=== PATIENT | female | born 1975 | race Caucasian/White ===

== ENCOUNTER 2016-06-12 06:55 | Inpatient (IN) | payer OTHER ==
[2016-06-12] VITALS (8 sets, daily range): BP systolic 116–128; BP diastolic 58–79
[~2016-06-12] VITALS: Ht 167.6 cm; Wt 76.0 kg
[~2016-06-12 06:55] MED LIST: PRENTAB55 PO
[2016-06-12] MEDS ORDERED: LR 1,000 ML IV SCH ×2 (08:05→11:00)
[2016-06-12] MEDS ORDERED: OXYTOCIN INJ 10 UNITS/ML VIAL (J2590) As Ordered ONE (08:06)
[2016-06-12] MEDS ORDERED: BICITRA 30ML SOLN UDC PO ONE (08:15)
[2016-06-12 08:37] LABS: MEAN CORPUSCULAR HEMOGLOBIN 33.2 pg (27.0-33.0); MEAN CORPUSCULAR HGB CONC 34.7 g/dl (32.0-36.5); MEAN CORPUSCULAR VOLUME 95.7 fl (80.0-96.0); RED CELL DISTRIBUTION WIDTH 12.7 % (11.5-14.5); WHITE BLOOD COUNT 9.2 K/mm3 (4.0-10.0)
[2016-06-12] MEDS: PRENATAL VITAMIN TAB PO SCH (09:00)
[2016-06-12] MEDS ORDERED: LR 500 ML IV SCH (09:00)
[2016-06-12] MEDS ORDERED: MORPHINE PRES-FREE INJ 10 MG/10 ML VIAL (J2274) As Ordered ONE (09:05)
[2016-06-12] MEDS ORDERED: ONDANSETRON 4MG/2ML VIAL (J2405) IV PRN ×3 (09:20→11:45)
[2016-06-12] MEDS ORDERED: NALBUPHINE HCL 10 MG/ML AMP (J2300) IV PRN (09:20)
[2016-06-12] MEDS ORDERED: METOCLOPRAMIDE INJ 10MG/2ML VIAL (J2765) IV PRN ×2 (09:20→11:00)
[2016-06-12] MEDS ORDERED: NALOXONE INJ 0.4 MG/1 ML VIAL (J2310) IV PRN ×2 (09:20)
[2016-06-12] MEDS ORDERED: ePHEDrine SULFATE 25 MG/5 ML(5MG/ML) SYRINGE As Ordered ONE (09:39)
[2016-06-12] MEDS ORDERED: fentaNYL 100 MCG/2 ML INJECTION (J3010) As Ordered ONE (09:58)
[2016-06-12] MEDS ORDERED: KETOROLAC 60 MG/2 ML VIAL (J1885) As Ordered ONE (10:15)
[2016-06-12] MEDS ORDERED: PERCOCET 5MG/325MG TAB PO PRN ×2 (11:00→11:45)
[2016-06-12] MEDS ORDERED: MEPERIDINE INJ 25 MG/ML VIAL (J2175) IV PRN (11:00)
[2016-06-12] MEDS ORDERED: fentaNYL 100 MCG/2 ML INJECTION (J3010) IV PRN (11:00)
[2016-06-12] MEDS ORDERED: MEASLES,MUMPS,RUBELLA VACCINE INJ (MMR-II) (90707) SC SCH (11:45)
[2016-06-12] MEDS ORDERED: PROMETHAZINE 25 MG TAB PO PRN (11:45)
[2016-06-12] MEDS ORDERED: METHYLERGONOVINE MALEATE 0.2 MG/ML VIAL (J2210) IM PRN (11:45)
[2016-06-12] MEDS ORDERED: RHOGAM 300 MCG (1500 IU) INJ (J2790) IM SCH (11:45)
[2016-06-12] MEDS: LR 1,000 ML IV SCH ×2 (14:03→19:42)
[2016-06-12] MEDS: KETOROLAC 30 MG/ML VIAL (J1885) IV SCH ×2 (16:01→22:21)
[2016-06-12] MEDS: DOCUSATE SODIUM 100 MG CAP PO SCH (22:21)
[2016-06-13 02:00] VITALS: BP 116/55
[2016-06-13] MEDS: LR 1,000 ML IV SCH (03:42)
[2016-06-13] MEDS: KETOROLAC 30 MG/ML VIAL (J1885) IV SCH ×2 (04:43→09:34)
[2016-06-13 06:20] VITALS: BP 110/59
--- NOTE | 2016-06-13 06:43 | RO ---
DATE OF PROCEDURE: 06/12/2016 PREOPERATIVE DIAGNOSES: 1. Intrauterine at 39 weeks estimated gestational age. 2. History of prior low transverse section. 3. Malpresentation. 4. Active labor. POSTOPERATIVE DIAGNOSIS 1. Intrauterine at 39 weeks estimated gestational age. 2. History of prior low transverse section. 3. Malpresentation. 4. Active labor. 5. Delivered. PROCEDURE PERFORMED: Repeat low transverse section. SURGEON: Marina Okeefe MD PETROGRAPHER: Vanessa Jauregui CNM ANESTHESIA: Spinal ESTIMATED BLOOD LOSS: 700 mL. IV FLUIDS: 700 mL lactated Ringer's. URINE OUTPUT: 200 mL. COMPLICATIONS: None. SPECIMEN: None. ANTIBIOTICS: Ancef 2 grams IV times one prior to skin incision. INDICATION: The patient is a 40-year-old, (G) 2, para (P) 1 with history of prior low transverse section and breech presentation of this fetus. She presented to labor and delivery in active labor and notable for cervical dilation of 5 cm. The patient was then counseled and consented at that time for a repeat low transverse section. FINDINGS: Viable female , Apgars 8 and 9, weight 8 pounds 7 ounces or 3816 grams. Normal uterus, tubes and ovaries bilaterally. The procedure, risks, benefits, indications and alternatives of the procedure were reviewed with the patient and informed consent was obtained. The patient was taken to the operating room where spinal anesthesia was obtained without difficulty. She was then prepped and draped in the normal sterile fashion in the dorsal supine position with a leftward tilt. A Pfannenstiel skin incision was then made with the scalpel and carried through to the underlying layer of fascia. The fascia was then incised in the midline and the incision extended laterally with Lozano scissors. The superior aspect of the fascial incision was grasped with Garry clamps, elevated and the underlying rectus muscles dissected off aided with a scalpel. Attention was then turned to the inferior aspect of this incision which in a similar fashion was grasped and tented up with Garry clamps and the rectus muscles dissected off aided with Lozano scissors. The rectus muscles were then at the midline. The peritoneum identified, tented up and entered digitally. The peritoneal incision was then extended horizontally with good visualization of the bladder. The bladder blade was then inserted. The vesicouterine peritoneum was then identified, grasped with pickups and entered sharply with Metzenbaum scissors. This incision was then extended laterally and the bladder flap was created digitally. The bladder blade was then reinserted. Next, the lower uterine segment was incised in a transverse fashion with the scalpel. The uterine incision was then extended manually. The amniotic sac was artificially ruptured productive of clear fluid. The was found to be in gus breech presentation. The bladder blade was then removed. The infant's sacrum was grasped and brought to the level of the hysterotomy. Pinard's maneuver was then used to atraumatically deliver the legs through the hysterotomy. A blue towel was then placed around the sacrum and Lovset's maneuver was then performed to the level of the scapula. The bilateral arms were delivered using Pinard's maneuver followed by the head using Dlptktkyh-Tlnnsib-Evek maneuver. The nose and mouth were suctioned with a bulb syringe and the cord doubly clamped and cut. The was handed to the waiting pediatricians. Placenta was then removed spontaneously with gentle traction on the umbilical cord. The uterus was then exteriorized and cleared of all clots and debris. The uterine incision was then repaired with #0 Vicryl in a running locked fashion. A second layer of #0 Vicryl was then used to imbricate the hysterotomy. The posterior cul-de-sac was then irrigated. The uterus was then returned to the abdomen. The hysterotomy was again noted to be hemostatic. Paracolic gutters were irrigated and cleared of all clots and debris. The fascia was then reapproximated with #0 Vicryl in a running fashion. The subcutaneous layer was closed with #3-0 Vicryl in a running fashion. Skin was closed with #3-0 Monocryl on a Josehp needle in a subcuticular fashion. The incision was then dressed with Steri-Strips and a pressure dressing applied. At the completion of the case, bimanual exam was performed with good uterine tone and minimal vaginal bleeding. The patient tolerated the procedure well. Sponge, lap and needle counts were correct times three. The patient was taken to the recovery room stable in stable condition. CONRADO
[2016-06-13 07:06] LABS: MEAN CORPUSCULAR HEMOGLOBIN 33.2 pg (27.0-33.0); MEAN CORPUSCULAR HGB CONC 34.6 g/dl (32.0-36.5); MEAN CORPUSCULAR VOLUME 95.9 fl (80.0-96.0); RED CELL DISTRIBUTION WIDTH 12.8 % (11.5-14.5); WHITE BLOOD COUNT 10.7 K/mm3 (4.0-10.0)
[2016-06-13] MEDS: PRENATAL VITAMIN TAB PO SCH (08:32)
[2016-06-13] MEDS: DOCUSATE SODIUM 100 MG CAP PO SCH ×2 (08:32→21:48)
[2016-06-13 09:55] VITALS: BP 124/61
[2016-06-13 14:00] VITALS: BP 117/63
[2016-06-13] MEDS: PERCOCET 5MG/325MG TAB PO PRN (15:17)
[2016-06-13 17:37] VITALS: BP 127/67
[2016-06-13] MEDS: IBUPROFEN 800 MG TAB PO SCH (18:13)
[2016-06-13 22:00] VITALS: BP 122/65
[2016-06-14] MEDS: IBUPROFEN 800 MG TAB PO SCH ×3 (01:49→17:32)
[2016-06-14 05:20] VITALS: BP 127/61
[2016-06-14] MEDS: PRENATAL VITAMIN TAB PO SCH (09:04)
[2016-06-14] MEDS: DOCUSATE SODIUM 100 MG CAP PO SCH ×2 (09:04→21:00)
[2016-06-14 18:11] VITALS: BP 137/71
[2016-06-14] MEDS: PERCOCET 5MG/325MG TAB PO PRN (22:49)
[2016-06-15] MEDS: IBUPROFEN 800 MG TAB PO SCH ×2 (02:00→09:51)
[2016-06-15 05:30] VITALS: BP 124/77
[2016-06-15] MEDS: DOCUSATE SODIUM 100 MG CAP PO SCH (09:50)
[2016-06-15] MEDS: PRENATAL VITAMIN TAB PO SCH (09:50)
[2016-06-15] MEDS ORDERED: COLA100C3 PO (10:58)
[2016-06-15] MEDS ORDERED: IBUP800T23 PO (11:00)
[2016-06-15] MEDS ORDERED: PERC5TAB6 PO ×2 (11:17→11:18)
[2016-06-15] MEDS ORDERED: ZOFR20TA PO (11:19)
== END 2016-06-15 12:30 | disposition home or self-care (01) | DRG 766 ==
LOC: M LDO 06:55 → M LDI 08:00 → M OBS 12:03
PROVIDERS: ADMIT Obstetrics & Gynecology; ATTEND Obstetrics & Gynecology
PROC: 10D00Z1 Extraction of Products of Conception, Low, Open Approach (ICD-10-PCS; principal; 2016-06-12 09:48)
DX: O32.9XX0 Maternal care for malpresentation of fetus, unspecified, not applicable or unspecified (principal); Z37.0 Single live birth; Z3A.39 39 weeks gestation of pregnancy; O99.820 Streptococcus B carrier state complicating pregnancy; O09.523 Supervision of elderly multigravida, third trimester; O34.211 Maternal care for low transverse scar from previous cesarean delivery

== ENCOUNTER 2016-10-27 14:53 | Emergency (ER) | payer OTHER ==
[~2016-10-27] VITALS: Ht 160 cm; Wt 68.3 kg
[~2016-10-27 14:53] MED LIST changes: +COLA100C5 PO; +IBUP1TAB7 PO; +PERC5TAB12 PO; +ZOFR20TA PO
[2016-10-27 19:12] VITALS: BP 146/84
--- NOTE | 2016-10-27 21:32 | REP ---
NOSE TO RECTUM FOREIGN BODY X-RAY 10/27/2016: Clinical history: Possible ingested glass. No prior study. Findings: View of the nasopharynx through upper chest shows intact airway, no radiopaque foreign body to suggest ingested glass visible. Bones intact. The lung matos clear. Heart, mediastinal contours normal. Two views of the lower chest and abdomen likewise show no radiopaque foreign body that would suggest ingested glass. There is no metallic foreign body. The bones are intact. Sacralization transverse processes of L5 in short twelfth ribs are noted. The bony pelvis was intact. No other findings. Impression: 1. Negative examination for radiopaque foreign body. This does not exclude the possibility of a glass foreign body or other isodense foreign bodies. Signed by Wali Watkins MD 10/28/2016 11:08 A
== END 2016-10-27 19:52 | disposition home or self-care (01) ==
LOC: M ED 14:53
DX: R07.0 Pain in throat (principal)